=== PATIENT | female | born 1975 | race Caucasian/White ===

== ENCOUNTER → 2017-02-12 08:33 | Outpatient (CLI) | payer BC | END | disposition home or self-care (01) | LOC: D.US 08:33 | DX: R10.11 Right upper quadrant pain (principal) ==

== ENCOUNTER 2017-03-20 05:25 | Day surgery (SDC) | payer BC ==
[2017-03-19 13:56] LABS: CALC OSMOLALITY 275 mosm/kg (275-300); CALCIUM 9.3 mg/dL (8.5-10.1); CARBON DIOXIDE 25.5 mmol/L (21.0-32.0); CHLORIDE - SERUM 102 mmol/L (98-107); CREATININE - SERUM 0.6 mg/dL (0.6-1.3); GLUCOSE 151 mg/dL (74-106); SODIUM 137 mmol/L (136-145); UREA NITROGEN 10 mg/dL (7-18); eGFR NON AFRICAN AMERICAN > 90 mL/min (90-120)
[2017-03-19 14:13] LABS: BASOPHILS 0.3 % (0-2); EOSINOPHILS 3.8 % (0-7); HEMATOCRIT 40.2 % (36.0-48.0); HEMOGLOBIN 13.3 g/dL (12-16); IMMATURE GRANULOCYTES 0.8 % (0-5); LYMPHOCYTES 26.5 % (15-50); MCHC 33.1 g/dL (31.0-37.0); MCV 87.8 fL (80.0-100.0); MONOCYTES 7.2 % (2-11); NEUTROPHILS 61.4 % (40-80); PLATELET COUNT 276 10x3/uL (130-400); RBC 4.58 10x6/uL (4.00-5.40); RDW 13.7 % (11.5-14.5)
[~2017-03-20] VITALS: Ht 162.6 cm; Wt 113.4 kg
[~2017-03-20 05:25] MED LIST: OMEPRAZOLE20 M1 PO; ZOLOFT50 MG PO
[2017-03-20 05:58] VITALS: BP 151/95; Ht 162.6 cm; Wt 113.4 kg
[2017-03-20 06:31] LABS: HCG URINE NEGATIVE (NEGATIVE)
[2017-03-20] MEDS ORDERED: HYDROCODONE-APA1 TAB PO (08:41)
--- NOTE | 2017-03-20 12:30 | NUR ---
AFVSS. TOLERATES FULL LIQUID TRAY WITHOUT N/V. C/O PAIN 12/04. MEDICATED PER EMAR. VOIDS LARGE AMOUNT OF CLEAR, YELLOW URINE. IV TO LEFT HAND DC'D WITH TIP INTACT, NO REDNESS OR SWELLING NOTED TO SITE. ENCOURAGED TO DRESS FOR DC, PT EXPRESSES WILL JUST REST AT THIS TIME AND NOTIFY WHEN OK TO DC.
--- NOTE | 2017-03-20 14:25 | NUR ---
DISCHARGE INSTRUCTIONS REVIEWED, VERBALIZED UNDERSTANDING. DENIES FURTHER NEEDS. DC'D VIA WC WITH STAFF AND FAMILY
--- NOTE | 2017-03-23 14:51 | OP ---
PATIENT NAME: ZANE BOOKER MEDICAL RECORD: [id number] :77 LOCATION:D.OPS ADMISSION DATE: SURGEON: URIEL KERN MD DATE OF OPERATION: 03/20/2017 PREOPERATIVE DIAGNOSES: 1. Gallstones. 2. Morbid obesity. 3. Hypercholesterolemia. 4. Gastroesophageal reflux disease. POSTOPERATIVE DIAGNOSES: 1. Gallstones. 2. Morbid obesity. 3. Hypercholesterolemia. 4. Gastroesophageal reflux disease. PROCEDURE: Laparoscopic cholecystectomy. SURGEON: Uriel Kern MD. REPORT OF PROCEDURE: The patient's abdomen was prepped and draped in sterile fashion. A cutdown was made on the superior aspect of the umbilicus, 0 Vicryls were placed in the fascia bilaterally and the fascia was incised with 15-blade. I then bluntly entered the peritoneal cavity and placed a 12-mm Perla port. Under direct visualization, a 5-mm trocar was placed in the epigastrium and 2 more 5-mm trocars were placed in the right subcostal region. The gallbladder was elevated. There were just some mild inflammatory adhesions and these were teased down with blunt dissection. The cystic artery and cystic duct were dissected free and these were clipped proximally and distally and ligated in standard fashion. The gallbladder was taken off the liver bed using electrocautery and placed in the right upper quadrant. Any bleeding from the liver bed was then treated with electrocautery. We irrigated out the right upper quadrant and assured there was no sign of any bleeding or bile leakage. At this point, the ports and insufflation were then removed and the gallbladder was taken out through the umbilicus. The umbilical fascia was closed with interrupted 0 Vicryls times 3. The wounds were irrigated out with normal saline and infused with 10 mL of 0.25% Marcaine with epinephrine. The skin incisions were all closed with subcutaneous 5-0 Monocryl and dressed appropriately. COMPLICATIONS: None. CONDITION: Stable. ANESTHESIA: General endotracheal and local. BLOOD LOSS: Minimal. 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
== END 2017-03-20 14:25 | disposition home or self-care (01) ==
LOC: D.OPS 05:25 → D.PAN 10:00 → D.OPS 11:45
PROVIDERS: Surgery
DX: K80.10 Calculus of gallbladder with chronic cholecystitis without obstruction (principal); E66.01 Morbid (severe) obesity due to excess calories; E78.00 Pure hypercholesterolemia, unspecified; K21.9 Gastro-esophageal reflux disease without esophagitis; Z01.812 Encounter for preprocedural laboratory examination; Z68.41 Body mass index [BMI] 40.0-44.9, adult

== ENCOUNTER → 2017-08-01 10:42 | Outpatient (CLI) | payer BC ==
[2017-03-20 05:58] VITALS: BMI 43.0
[~2017-08-01 10:42] MED LIST changes: +HYDROCODONE-APA1 TAB PO
== END | disposition home or self-care (01) ==
LOC: D.US 10:42
DX: M79.661 Pain in right lower leg (principal); R60.0 Localized edema

== ENCOUNTER 2018-08-07 22:55 | Emergency (ER) | payer BC ==
[~2018-08-07] VITALS: Ht 162.6 cm; Wt 106.6 kg
[2018-08-07 23:23] VITALS: Ht 162.6 cm; Wt 106.6 kg
[2018-08-07] MEDS ORDERED: METOPROLOL TART50 MG PO (23:25)
[2018-08-07] MEDS ORDERED: OZEMPIC (23:27)
[2018-08-08 01:41] VITALS: BP 140/80
== END 2018-08-08 01:44 | disposition home or self-care (01) ==
LOC: D.ER 22:55
DX: S93.401A Sprain of unspecified ligament of right ankle, initial encounter (principal); X50.1XXA Overexertion from prolonged static or awkward postures, initial encounter; Y93.89 Activity, other specified; Y92.89 Other specified places as the place of occurrence of the external cause